=== PATIENT | female | born 1990 | race Caucasian/White ===

== ENCOUNTER 2017-05-20 12:29 | Emergency (ER) | payer OTHER ==
[~2017-05-20] VITALS: Ht 170.2 cm; Wt 91.3 kg
[2017-05-20 16:21] VITALS: BP 121/84
== END 2017-05-20 16:22 | disposition home or self-care (01) ==
LOC: EME 12:29
DX: I73.9 Peripheral vascular disease, unspecified (principal); Z98.890 Other specified postprocedural states; Z88.1 Allergy status to other antibiotic agents
CPT/HCPCS: 93005; 93926; 99281; 99284